=== PATIENT | male | born 1985 ===

== ENCOUNTER 2018-10-21 11:35 | Emergency (ER) | payer SELFPAY ==
[2018-10-21 11:56] VITALS: BP 141/87
--- NOTE | 2018-10-21 11:56 | Event Note ---
ED Screening Note ED Screening Note: co l flank pain nausea pain in triage pmh none psh none rx none no cig/etoh/drugs This initial assessment/diagnostic orders/clinical plan/treatment(s) is/are subject to change based on patients health status, clinical progression and re- assessment by fellow clinical providers in the ED. Further treatment and workup at subsequent clinical providers discretion. Patient/guardian urged not to elope from the ED as their condition may be serious if not clinically assessed and managed. Initial orders include: urine labs
[2018-10-21] MEDS ORDERED: ZOFRAN IV ONE (12:17)
[2018-10-21] MEDS ORDERED: TORADOL IV ONE (12:17)
[2018-10-21] MEDS ORDERED: MORPHINE IV ONE (12:17)
[2018-10-21] MEDS ORDERED: NACL 0.9% 1000 ML 1,000 ML IV ONE (12:17)
[2018-10-21 12:28] LABS: Bilirubin,Urine NEG (Negative); Blood,Urine MOD (Negative); Color,Urine Yellow (Yellow); Mucus,Urine FEW /HPF; Protein,Urine <15 mg/dL mg/dL (Negative); Urobilinogen,Urine < 2.0 mg/dL (<2.0)
[2018-10-21 12:48] LABS: Hematocrit 44.5 % (35.5-45.6); Hemoglobin 15.4 gm/dl (11.8-15.2); Mean Corpuscular HGB Conc 35 % (32-34); Mean Corpuscular Volume 87 fl (84-94); Platelet Count 195 K/mm3 (140-440); Red Blood Count 5.11 M/mm3 (3.65-5.03); Red Cell Distribution Width 13.5 % (13.2-15.2)
[2018-10-21] MEDS ORDERED: MORPHINE ONE (12:48)
--- NOTE | 2018-10-21 13:01 | Cat Scan Report ---
CT abdomen pelvis wo con INDICATION: MAIN: Left side pain. Started 3 weeks ago. Pain went away and came back today. . TECHNIQUE: All CT scans at this location are performed using the following dose modulation technique: Automated exposure control. Helical slices were obtained through the abdomen and pelvis. No contrast is adminis tered. COMPARISON: None available. FINDINGS: Abdomen: Lung bases are clear. Liver, spleen, pancreas, adrenal glands, and right kidney are unremark able. The bowel is grossly unremarkable. There is mild left hydroureteronephrosis. There is mild ranulfo nephric edema on the left. The appendix is normal in appearance. Pelvis: There is a 6 x 3 mm stone at the left ureterovesical junction. There is no inflammatory hughes e. There are no abnormal fluid collections. Review of bone windows, no acute osseous abnormalities are seen. IMPRESSION: 1. There is a 6 mm x 3 mm obstructing stone at the left ureterovesical junction with mild hydroureter onephrosis proximal to it. Signer Name: Jacob Castro MD Signed: 10/21/2018 12:56 PM Workstation Name: [id number]
[2018-10-21 13:11] LABS: Alanine Aminotransferase 23 units/L (7-56); Albumin 4.7 g/dL (3.9-5); BUN/Creatinine Ratio 12; Blood Urea Nitrogen 11 mg/dL (9-20); Calcium 9.3 mg/dL (8.4-10.2); Hemolysis Index 9
--- NOTE | 2018-10-21 13:46 | Emergency Department Report ---
ED Abdominal Pain HPI - General Chief Complaint: Abdominal Pain Stated Complaint: ABDOMINAL PAIN Time Seen by Provider: 10/21/18 11:55 Source: patient Mode of arrival: Ambulatory Limitations: No Limitations - History of Present Illness Initial Comments: Patient is a 33-year-old male who is presenting with acute onset of left flank pain that began at 0300. Patient's has some mild nausea and one episode of vomiting. Patient states there is some pain with urination. The patient states the pain is starting in the left back radiating to the left groin. He denies any hematuria. he has never had this pain before. Pain is 7 out of 10 in severity Severity scale (0 -10): 6 - Related Data Previous Rx's Medication Instructions Recorded Last Taken Type HYDROcodone/APAP 5-325 [[place] 1 each PO Q6HR PRN #14 tablet 10/21/18 Unknown Rx 5/325] Ketorolac [Toradol] 10 mg PO Q6H PRN #12 tablet 10/21/18 Unknown Rx Ondansetron [Zofran Odt] 4 mg PO Q8HR #10 tab.rapdis 10/21/18 Unknown Rx Allergies Allergy/AdvReac Type Severity Reaction Status Date / Time No Known Allergies Allergy Unverified 10/21/18 11:39 ED Review of Systems ROS: Stated complaint: ABDOMINAL PAIN Other details as noted in HPI Comment: All other systems reviewed and negative ED Past Medical Hx - Past Medical History Previous Medical History?: No - Surgical History Past Surgical History?: No - Social History Smoking Status: Never Smoker Substance Use Type: None - Medications Home Medications: Home Medications Medication Instructions Recorded Confirmed Last Taken Type HYDROcodone/APAP 5-325 [[place] 1 each PO Q6HR PRN #14 tablet 10/21/18 Unknown Rx 5/325] Ketorolac [Toradol] 10 mg PO Q6H PRN #12 tablet 10/21/18 Unknown Rx Ondansetron [Zofran Odt] 4 mg PO Q8HR #10 tab.rapdis 10/21/18 Unknown Rx ED Physical Exam - General Limitations: No Limitations General appearance: alert, in no apparent distress, other (seems very uncomfortable) - Head Head exam: Present: atraumatic, normocephalic - Eye Eye exam: Present: normal appearance, PERRL, EOMI - ENT ENT exam: Present: mucous membranes moist - Neck Neck exam: Present: normal inspection - Respiratory Respiratory exam: Present: normal lung sounds bilaterally. Absent: respiratory distress, wheezes, rales, rhonchi - Cardiovascular Cardiovascular Exam: Present: regular rate, normal rhythm. Absent: systolic murmur, diastolic murmur, rubs, gallop - GI/Abdominal GI/Abdominal exam: Present: soft, tenderness (left flank), normal bowel sounds. Absent: distended, guarding, rebound - Rectal Rectal exam: Present: deferred - Extremities Exam Extremities exam: Present: normal inspection - Back Exam Back exam: Present: normal inspection, CVA tenderness (L) - Neurological Exam Neurological exam: Present: alert, oriented X3 - Psychiatric Psychiatric exam: Present: normal affect, normal mood - Skin Skin exam: Present: warm, dry, intact, normal color. Absent: rash ED Course Vital Signs 10/21/18 11:54 Temperature 97.9 F Pulse Rate 69 Respiratory 18 Rate Blood Pressure 141/87 [Left] O2 Sat by Pulse 100 Oximetry ED Medical Decision Making - Lab Data Result diagrams: 10/21/18 12:27 10/21/18 12:27 Lab Results 10/21/18 10/21/18 10/21/18 Range/Units 12:03 12:27 12:27 WBC 9.4 (4.5-11.0) K/mm3 RBC 5.11 H (3.65-5.03) M/mm3 Hgb 15.4 H (11.8-15.2) gm/dl Hct 44.5 (35.5-45.6) % MCV 87 (84-94) fl MCH 30 (28-32) pg MCHC 35 H (32-34) % RDW 13.5 (13.2-15.2) % Plt Count 195 (140-440) K/mm3 Sodium 140 (137-145) mmol/L Potassium 3.6 (3.6-5.0) mmol/L Chloride 103.1 (98-107) mmol/L Carbon Dioxide 23 (22-30) mmol/L Anion Gap 18 mmol/L BUN 11 (9-20) mg/dL Creatinine 0.9 (0.8-1.5) mg/dL Estimated GFR > 60 ml/min BUN/Creatinine Ratio 12 % Glucose 129 H (75-100) mg/dL Calcium 9.3 (8.4-10.2) mg/dL Total Bilirubin 0.70 (0.1-1.2) mg/dL AST 17 (5-40) units/L ALT 23 (7-56) units/L Alkaline Phosphatase 83 (35-129) units/L Total Protein 7.5 (6.3-8.2) g/dL Albumin 4.7 (3.9-5) g/dL Albumin/Globulin Ratio 1.7 % Urine Color Yellow (Yellow) Urine Turbidity Clear (Clear) Urine pH 6.0 (5.0-7.0) Ur Specific [place] 1.021 (1.003-1.030) Urine Protein <15 mg/dl (Negative) mg/dL Urine Glucose (UA) Neg (Negative) mg/dL Urine Ketones Neg (Negative) mg/dL Urine Blood Mod (Negative) Urine Nitrite Neg (Negative) Urine Bilirubin Neg (Negative) Urine Urobilinogen < 2.0 (<2.0) mg/dL Ur Leukocyte Esterase Neg (Negative) Urine WBC (Auto) 1.0 (0.0-6.0) /HPF Urine RBC (Auto) 26.0 (0.0-6.0) /HPF U Epithel Cells (Auto) < 1.0 (0-13.0) /HPF Urine Mucus Few /HPF - Radiology Data [facility] [address] [place] [address] Cat Scan Report Signed Patient: LACEY DAY MR#: [id number] : 1985 Acct:[id number] Age/Sex: 33 / M ADM Date: 10/21/18 Loc: ED Attending Dr: Ordering Physician: ELLY HAMLIN MD Date of Service: 10/21/18 Procedure(s): CT abdomen pelvis wo con Accession Number(s): [id number] cc: ELLY HAMLIN MD CT abdomen pelvis wo con INDICATION: MAIN: Left side pain. Started 3 weeks ago. Pain went away and came back today. . TECHNIQUE: All CT scans at this location are performed using the following dose modulation technique: Automated exposure control. Helical slices were obtained through the abdomen and pelvis. No contrast is administered. COMPARISON: None available. FINDINGS: Abdomen: Lung bases are clear. Liver, spleen, pancreas, adrenal glands, and right kidney are unremarkable. The bowel is grossly unremarkable. There is mild left hydroureteronephrosis. There is mild perinephric edema on the left. The appendix is normal in appearance. Pelvis: There is a 6 x 3 mm stone at the left ureterovesical junction. There is no inflammatory change. There are no abnormal fluid collections. Review of bone windows, no acute osseous abnormalities are seen. IMPRESSION: 1. There is a 6 mm x 3 mm obstructing stone at the left ureterovesical junction with mild hydroureteronephrosis proximal to it. Signer Name: Jacob Castro MD Signed: 10/21/2018 12:56 PM Workstation Name: [id number] Transcribed By: SS Dictated By: Jacob Castro MD Electronically Authenticated By: Jacob Castro MD Signed Date/Time: 10/21/18 1256 - Medical Decision Making Patient given meds for pain control which did improve his pain. Patient will be discharged home. Patient will do a urine strainer. Critical care attestation.: If time is entered above; I have spent that time in minutes in the direct care of this critically ill patient, excluding procedure time. ED Disposition Clinical Impression: Hydronephrosis Qualifiers: Hydronephrosis type: with ureteral calculous obstruction Qualified Code(s): N13.2 - Hydronephrosis with renal and ureteral calculous obstruction Disposition: -01 TO HOME OR SELFCARE Is pt being admited?: No Does the pt Need Aspirin: No Condition: Stable Instructions: Kidney Stones (ED), How to Strain Your Urine (ED) Referrals: ZAIN GHOTRA MD [Staff Physician] - 3-5 Days Time of Disposition: 13:47 Print Language: NORWEGI[place]
== END 2018-10-21 14:07 | disposition home or self-care (01) ==
LOC: ED 11:35
DX: N13.30 Unspecified hydronephrosis (principal)
CPT/HCPCS: 36415; 74176; 80053; 81001; 85027; 96361; 96374; 96375; 99284; J1885; J2270; J2405; J7030